=== PATIENT | male | born 1955 | race Caucasian/White ===

== ENCOUNTER → 2023-12-13 10:19 | Outpatient (BNVA) | payer OTHER, SELFPAY | PROVIDERS: PCP Family Medicine; Visit Provider Psychiatry & Neurology Psychiatry | DX: Z79.899 Other long term (current) drug therapy (principal); F06.30 Mood disorder due to known physiological condition, unspecified | CPT/HCPCS: 80053; 80061; 80164; 83036; 84443; 85025 ==

== ENCOUNTER → 2024-12-31 13:34 | Outpatient (BNVA) | payer MEDICARE, SELFPAY | PROVIDERS: PCP Family Medicine; Referring Provider Family Medicine; Visit Provider Specialist | DX: M79.641 Pain in right hand (principal); M79.631 Pain in right forearm; M79.621 Pain in right upper arm | CPT/HCPCS: 95909 ==

== ENCOUNTER → 2025-01-28 10:07 | Outpatient (BNVA) | payer MEDICARE, SELFPAY | PROVIDERS: PCP Family Medicine; Visit Provider Orthopaedic Surgery | DX: Z01.818 Encounter for other preprocedural examination (principal); M25.531 Pain in right wrist; G56.01 Carpal tunnel syndrome, right upper limb | CPT/HCPCS: 36415; 80053; 85025; 99204 ==

== ENCOUNTER 2025-01-30 14:53 | Outpatient (CLI) | payer MEDICARE, SELFPAY ==
[2025-01-30 15:31] LABS: Bacteria Urine None Seen /hpf; Hyaline Casts Urine 0-4 /lpf; Squamous Epithelial Cell Urine 0-5 /hpf (0-5); WBC Urine 0-5 /hpf (0-5)
[2025-01-30 15:54] LABS: Urine Color Yellow (Yellow)
[2025-01-30 15:55] LABS: Add Urine Microscopic? YES; Bilirubin Urine Neg (Negative); Blood Urine 3+ (Negative); Glucose Urine UA Norm (Normal); Ketones Urine Negative (Negative); Leukocyte Esterase Urine Negative (Negative); Nitrate Urine Negative (Negative); Protein Urine Neg (Negative); Urine Appearance Slightly Cloudy (CLEAR); Urobilinogen Urine Norm (Negative); pH Urine 6 (5-7)
== END 2025-01-30 14:54 | disposition home or self-care (01) ==
LOC: LAB 14:56
PROVIDERS: PCP Family Medicine; Visit Provider Orthopaedic Surgery
DX: Z01.818 Encounter for other preprocedural examination (principal)
CPT/HCPCS: 81001

== ENCOUNTER 2025-02-14 07:13 | Day surgery (SDC) | payer MEDICARE, SELFPAY ==
[2025-02-14] VITALS (10 sets, daily range): BP systolic 106–164; BP diastolic 52–104; PULSE 65–74; RESP 17–20; TEMP 36.2–36.5; O2SAT 95–99; BMI 29.3
--- NOTE | 2025-02-14 07:25 | W.PM.OPSUD ---
Surgery/Procedure H&P Update DATE OF PROCEDURE: February 14, 2025 DATE H&P PERFORMED: 01/28/25 H&P UPDATE INFORMATION: I have reviewed H&P completed within last 30 days, I have examined patient prior to procedure, No changes to prior documentation, H&P is in [facility] EMR on date indicated and Risks and benefits of the procedure reviewed PREOP DIAGNOSIS: Right carpal tunnel syndrome PRIMARY INDICATION FOR PROCEDURE: Pain, numbness, tingling, and weakness of the right hand PLANNED PROCEDURE: Operation Date: 02/14/25 08:00 Proposed Procedures p RIGHT Carpal Tunnel Release(Right) - Shalom Ennis MD
[2025-02-14] MEDS: sodium chloride 0.9% 1,000 ML 30 ML IV (07:39)
[2025-02-14] MEDS: ceFAZolin 2,000 mg SDV 2000 MG IVP (07:43)
--- NOTE | 2025-02-14 07:44 | ANES.PREANE2 ---
Pre-Anesthetic Assessment Height/Weight: Height 1.68 m Weight 82.554 kg Temp Pulse Resp BP Pulse Ox O2 Del Method 97.5 F L 66 18 150/104 98 Room Air 02/14/25 07:28 02/14/25 07:28 02/14/25 07:28 02/14/25 07:28 02/14/25 07:28 02/14/25 07:28 Preop Diagnosis: Right carpal tunnel syndrome Operation Date: 02/14/25 08:00 Proposed Procedures p RIGHT Carpal Tunnel Release(Right) - Shalom Ennis MD Familial anesthetic complications: none Was Beta Mehreen taken within 24 hours: N/A Was Clonidine taken within 24 hours: N/A Last intake: Intake Last Liquid Date 02/13/25 Last Liquid Time 19:00 Last Solid Date 02/13/25 Last Solid Time 19:00 Social No alcohol and No tobacco Exam alert, oriented x 3, clear to auscultation bilaterally and regular rate & rhythm Airway Submandibular: within normal limits Cervical ROM: within normal limits Mallampati: Class II Dentition: chipped CV/HEM Hypertension Neuropsych Anxiety, Cerebrovascular Accident, Deficit and Depression Anesthetic Plan ASA status: 3 Anesthesia: Choice Medications/Allergies Home Medications ?Medication ?Instructions ?Recorded ?Confirmed ?Last Taken ?Type divalproex 500 mg tablet,extended 500 mg PO DAILY 09/04/23 02/14/25 02/13/25 History release 24 hr (Depakote ER) amlodipine 5 mg tablet 5 mg PO DAILY 10/07/24 02/14/25 02/13/25 History lisinopril 20 1 tab PO DAILY 10/07/24 02/14/25 02/13/25 History mg-hydrochlorothiazide 25 mg tablet lurasidone 40 mg tablet (Latuda) 40 mg PO .at dinner 02/14/25 02/14/25 02/13/25 History Allergies Allergy/AdvReac Type Severity Reaction Status Date / Time codeine Allergy Intermediate ADR-Nausea Verified 02/14/25 07:24 opiates Allergy Intermediate ADR-Nausea Uncoded 02/14/25 07:24 Current Medications Generic Name Dose Route Start Last Admin Trade Name Freq PRN Reason Stop Dose Admin Sodium Chloride 1,000 mls @ 30 mls/hr 02/14/25 07:30 02/14/25 07:39 Sodium Chloride 0.9% IV 02/15/25 07:29 30 mls/hr .Q24H GISEL Administration PFSH Anesthesia Medical History Psychiatric care Social History Smoking and tobacco/nicotine status: never used tobacco/nicotine Data Anesthesia Cardiac Studies: No Data to Display
[2025-02-14] MEDS: lidocaine-epi 1% PF 1:200,000 30 mL SDV 5 ML INJECTION (08:00)
[2025-02-14] MEDS: ROPivacaine 0.5% SDV 30 mL 25 MG INJECTION (08:00)
--- NOTE | 2025-02-14 08:12 | PM.OP ---
Operative Report Date of procedure: February 14, 2025 Surgeon: Shalom Ennis MD Procedure: Preoperative diagnosis: Right carpal tunnel syndrome Postoperative diagnosis: Same Procedure: Right carpal tunnel release Surgeon: Shalom Ennis MD Anesthesia: IV sedation with local anesthetic EBL: None Tourniquet time: 6 minutes at 250 mmHg Indications: Star is a 69-year-old white male was referred to the orthopedic clinics for evaluation of numbness tingling and loss of strength in his right hand. Nerve conduction studies have been done demonstrating carpal tunnel syndrome of the right wrist. Having failed all conservative measures he was offered a right carpal tunnel release. All risk benefits treatment alternatives were discussed with he and his and they are agreeable to this at this time. Procedure: After obtaining the consent patient was taken the operating room and while still on his hospital bed had IV sedation administered. Pneumatic cuffs placed on proximal right arm and right arm was prepped and draped usual fashion. After surgical timeout arm was exsanguinated with an Esmarch wrap. Pneumatic cuffs inflated 250 mmHg. A mixture of 1% lidocaine and half percent Marcaine was then injected into the palmar area of the incision site. Longitudinal incision was made from the distal flexion crease on the palmar surface of the wrist distally along the ulnar border of the mid palmar crease. This measured approximately 1-1/2 cm in length. Sharp this extends all the way down to subcutaneous tissues and then down to the transverse carpal ligament. The transverse carpal ligament was then divided with a #15 blade along the course of the skin incision. Once within the compartment in a blunt and sharp fashion Metzenbaum scissors were used to split the transverse carpal ligament both proximally and distally. Once this proved to be completely decompressed wound was closed with 3-0 nylon running horizontal mattress then dressed with Xeroform gauze, sterile gauze dressing, Kerlix wrap, Jori wrap for compression. Pneumatic cuff is deflated at this time total 6 minutes. Patient was awakened transferred to cover room stable condition
[2025-02-14] MEDS: TRAMadol 50 mg Tablet PO (09:22)
--- NOTE | 2025-02-14 09:37 | ANE.PACU2 ---
Inpatient post-anesthesia follow up: Airway intact: Yes Vital signs: Temperature 97.5 F Pulse Rate 66 Respiratory Rate 17 Blood Pressure 136/79 Pulse Oximetry 95 Oxygen Delivery Me thod Room Air Oxygen Flow Rate 8 Fraction of Inspir ed Oxygen Hydration adequate: Yes Nausea and vomiting: No Pain level: 2 Mental status: Baseline
== END 2025-02-14 09:35 | disposition home or self-care (01) ==
PROVIDERS: PCP Family Medicine; Visit Provider Orthopaedic Surgery
PROC: (CPT 64721; principal; 2025-02-14 08:00)
DX: G56.01 Carpal tunnel syndrome, right upper limb (principal); I10 Essential (primary) hypertension; Z88.5 Allergy status to narcotic agent; Z79.899 Other long term (current) drug therapy
CPT/HCPCS: 64721; J0690; J2704; J2795; J3010; J7030; J9999

== ENCOUNTER → 2025-03-07 09:29 | Outpatient (BNVA) | payer MEDICARE, SELFPAY | PROVIDERS: PCP Family Medicine; Visit Provider Orthopaedic Surgery | DX: G56.01 Carpal tunnel syndrome, right upper limb (principal) | CPT/HCPCS: 99024 ==